=== PATIENT | female | born 1970 | race Caucasian/White ===

== ENCOUNTER 2017-09-28 19:16 | Emergency (ER) | payer OTHER ==
[~2017-09-28] VITALS: Ht 152.4 cm; Wt 95.3 kg
[2017-09-28] MEDS ORDERED: DULCOLAX STOOL100 MG PO (19:24)
[2017-09-28] MEDS ORDERED: ACETAMINOPHEN-1 EAC1 PO (19:25)
== END 2017-09-28 22:29 | disposition home or self-care (01) ==
LOC: ER 19:16
DX: S90.01XA Contusion of right ankle, initial encounter (principal); S90.31XA Contusion of right foot, initial encounter; V49.9XXA Car occupant (driver) (passenger) injured in unspecified traffic accident, initial encounter; Y93.89 Activity, other specified; Y92.488 Other paved roadways as the place of occurrence of the external cause; Y99.8 Other external cause status

== ENCOUNTER 2020-09-05 15:24 | Emergency (ER) | payer OTHER ==
[~2020-09-05] VITALS: Ht 152.4 cm; Wt 98.9 kg
[~2020-09-05 15:24] MED LIST: ACETAMINOPHEN-1 EAC1 PO; DULCOLAX STOOL100 MG PO
== END 2020-09-05 18:15 | disposition home or self-care (01) ==
LOC: ER 15:24
DX: S40.021A Contusion of right upper arm, initial encounter (principal); S50.01XA Contusion of right elbow, initial encounter; W22.8XXA Striking against or struck by other objects, initial encounter; Y93.89 Activity, other specified; Y92.89 Other specified places as the place of occurrence of the external cause; Y99.8 Other external cause status; M77.8 Other enthesopathies, not elsewhere classified

== ENCOUNTER 2020-10-02 20:07 | Emergency (ER) | payer OTHER ==
[~2020-10-02] VITALS: Ht 152.4 cm; Wt 98.9 kg
[2020-10-02] MEDS ORDERED: LISINOPRIL2.5 MG PO (20:17)
[2020-10-02] MEDS ORDERED: CODE1TAB37 PO (20:17)
[2020-10-02] MEDS ORDERED: MEDROLPACK PO (22:53)
[2020-10-02] MEDS ORDERED: PERCOCET 5-3251 EACH PO (22:58)
== END 2020-10-02 23:45 | disposition home or self-care (01) ==
LOC: ER 20:07
DX: M77.8 Other enthesopathies, not elsewhere classified (principal); M25.511 Pain in right shoulder

== ENCOUNTER 2021-01-06 08:00 | Outpatient (CLI) | payer OTHER ==
[~2021-01-06 08:00] MED LIST changes: +CODE1TAB37 PO; +LISINOPRIL2.5 MG PO; +MEDROLPACK PO; +PERCOCET 5-3251 EACH PO
== END 2021-01-06 08:30 | disposition home or self-care (01) ==
LOC: PPH VACUNA 08:00
DX: Z23 Encounter for immunization (principal)

== ENCOUNTER → 2021-02-13 | Outpatient (CLI) | payer OTHER | END | disposition home or self-care (01) | LOC: PPH VACUNA 15:45 | PROVIDERS: ATTEND Emergency Medicine Pediatric Emergency Medicine | DX: Z23 Encounter for immunization (principal) ==

== ENCOUNTER 2021-08-13 14:53 | Emergency (ER) | payer OTHER ==
[~2021-08-13] VITALS: Ht 165.1 cm; Wt 75.3 kg
== END 2021-08-13 21:17 | disposition home or self-care (01) ==
LOC: ER 14:53
DX: S60.012A Contusion of left thumb without damage to nail, initial encounter (principal); W18.30XA Fall on same level, unspecified, initial encounter; Y93.9 Activity, unspecified; Y92.012 Bathroom of single-family (private) house as the place of occurrence of the external cause

== ENCOUNTER 2021-11-25 21:37 | Emergency (ER) | payer OTHER ==
[~2021-11-25] VITALS: Ht 152.4 cm; Wt 98.0 kg
[2021-11-26] MEDS ORDERED: DULCOLAX5 MG (00:10)
[2021-11-26] MEDS ORDERED: PROTONIX20 MG (00:10)
== END 2021-11-26 05:57 ==
LOC: ER 21:37
DX: S93.402A Sprain of unspecified ligament of left ankle, initial encounter (principal); S83.92XA Sprain of unspecified site of left knee, initial encounter; X58.XXXA Exposure to other specified factors, initial encounter; Y93.89 Activity, other specified; Y92.9 Unspecified place or not applicable; Y99.9 Unspecified external cause status; Z88.6 Allergy status to analgesic agent; Z88.0 Allergy status to penicillin; Z88.8 Allergy status to other drugs, medicaments and biological substances

== ENCOUNTER 2022-09-05 16:17 | Emergency (ER) | payer OTHER ==
[~2022-09-05] VITALS: Ht 152.4 cm; Wt 98.9 kg
[~2022-09-05 16:17] MED LIST changes: +DULCOLAX5 MG; +PROTONIX20 MG
== END 2022-09-05 23:25 | disposition home or self-care (01) ==
LOC: ER 16:17
DX: R10.32 Left lower quadrant pain (principal); Z88.6 Allergy status to analgesic agent; Z88.0 Allergy status to penicillin; Z88.8 Allergy status to other drugs, medicaments and biological substances

== ENCOUNTER 2024-03-10 13:08 | Emergency (ER) | payer OTHER ==
[~2024-03-10] VITALS: Ht 152.4 cm; Wt 104.3 kg
[2024-03-10] MEDS ORDERED: 0.9 % SODIUM CHLORIDE 1,000 ML IV SCH (14:30)
[2024-03-10] MEDS ORDERED: DICYCLOMINE HCL 20 MG TABLET PO ONE (14:30)
[2024-03-10 15:43] LABS: HEMATOCRIT 36.3 % (36.0-45.00); HEMOGLOBIN 12.2 g/dL (12.0-15.00); MEAN CELL VOLUME 83.1 fL (80.00-100.00); MEAN CORPUSCULAR HEMOGLOBIN 27.9 pg (27.00-32.0); MEAN CORPUSCULAR HGB CONC 33.6 g/dl (32.0-36.0); PLATELET COUNT 374 K/uL (150-450); RED BLOOD COUNT 4.37 M/uL (4.00-6.00); RED CELL DISTRIBUTION WIDTH 14.5 % (11.5-14.5)
[2024-03-10 16:07] LABS: CALCIUM 9.8 mg/dL (8.5-10.1); CREATININE SERUM 0.74 mg/dL (0.55-1.02); GFR 82.09; PH,URINE 5.5 (5.0-8.0); POTASSIUM 3.86 mEq/L (3.5-5.1); URINE APPEARANCE Cloudy; URINE BILIRRUBIN Small (NEGATIVE); URINE BLOOD Negative; URINE COLOR Dark Yellow; URINE GLUCOSE Negative (NEGATIVE); URINE LEUKOCYTE Small; URINE NITRATE Negative; URINE PROTEIN Trace (NEGATIVE)
[2024-03-10 16:13] LABS: URINE CAST 2.59 uL (0.0-1.40); URINE EPITHELIAL CELLS 107.4 uL (0.0-38.8); URINE RBC 25.4 uL (0.0-20.8); URINE WBC 108.3 uL (0.0-23.2)
[2024-03-10 16:58] LABS: URINE BACTERIA > 9821.5 uL (0.0-1933); URINE KETONE 40 (NEGATIVE)
[2024-03-10] MEDS ORDERED: FAMOTIDINE/PF 20 MG in 0.9 % SODIUM CHLORIDE 8 ML IV PUSH STA (19:49)
[2024-03-10] MEDS ORDERED: METRONIDAZOLE500 MG PO (19:52)
[2024-03-10] MEDS ORDERED: LEVSIN/SL0.125 MG SL (19:52)
[2024-03-10] MEDS ORDERED: PROTONIX40 MG PO (19:52)
[2024-03-10] MEDS ORDERED: METRONIDAZOLE/SODIUM CHLORIDE 500 MG/100 ML PIGGYBACK IV ONE (20:00)
== END 2024-03-10 20:29 | disposition home or self-care (01) ==
LOC: ER 13:10
PROVIDERS: Emergency Medicine
DX: K57.32 Diverticulitis of large intestine without perforation or abscess without bleeding (principal); R10.32 Left lower quadrant pain; M19.90 Unspecified osteoarthritis, unspecified site; J45.909 Unspecified asthma, uncomplicated; Z88.0 Allergy status to penicillin; Z88.2 Allergy status to sulfonamides; Z91.040 Latex allergy status; Z85.42 Personal history of malignant neoplasm of other parts of uterus; K44.9 Diaphragmatic hernia without obstruction or gangrene; K59.00 Constipation, unspecified; Z90.710 Acquired absence of both cervix and uterus; Z88.6 Allergy status to analgesic agent
CPT/HCPCS: 36415; 74177; 96365; 96366; 99284; J3490; J7030; Q9965

== ENCOUNTER 2024-03-31 09:26 | Emergency (ER) | payer OTHER ==
[~2024-03-31] VITALS: Ht 152.4 cm; Wt 108.0 kg
[~2024-03-31 09:26] MED LIST changes: +LEVSIN/SL0.125 MG SL; +METRONIDAZOLE500 MG PO; +PROTONIX40 MG PO
[2024-03-31] MEDS ORDERED: BUDEO.25 IH (09:44)
[2024-03-31] MEDS ORDERED: PEPCID AC20 MG (09:44)
[2024-03-31] MEDS ORDERED: MEPERIDINE HCL/PF 50 MG/ML VIAL IM STA (10:25)
[2024-03-31] MEDS ORDERED: PROMETHAZINE HCL 25 MG/ML AMPUL IM STA (10:26)
[2024-03-31] MEDS ORDERED: 0.9 % SODIUM CHLORIDE 1,000 ML IV STA (10:26)
[2024-03-31 11:04] LABS: HEMATOCRIT 36.6 % (36.0-45.00); HEMOGLOBIN 12.3 g/dL (12.0-15.00); MEAN CELL VOLUME 82.6 fL (80.00-100.00); MEAN CORPUSCULAR HEMOGLOBIN 27.8 pg (27.00-32.0); MEAN CORPUSCULAR HGB CONC 33.7 g/dl (32.0-36.0); PLATELET COUNT 279 K/uL (150-450); RED BLOOD COUNT 4.43 M/uL (4.00-6.00); RED CELL DISTRIBUTION WIDTH 14.2 % (11.5-14.5)
[2024-03-31 11:17] LABS: URINE APPEARANCE Clear; URINE BILIRRUBIN Negative (NEGATIVE); URINE COLOR Yellow; URINE GLUCOSE Negative (NEGATIVE); URINE KETONE Negative (NEGATIVE); URINE LEUKOCYTE Negative; URINE NITRATE Negative; URINE PROTEIN Trace (NEGATIVE); URINE UROBILINOGEN 0.2 E.U./dl
[2024-03-31 11:20] LABS: URINE BACTERIA 251.9 uL (0.0-1933); URINE EPITHELIAL CELLS 22.8 uL (0.0-38.8); URINE RBC 100.6 uL (0.0-20.8); URINE WBC 4.6 uL (0.0-23.2)
[2024-03-31 11:31] LABS: ALBUMIN 3.7 gm/dL (3.4-5.0); BILIRUBIN TOTAL 0.55 mg/dL (0.3-1.2); BILIRUBIN,CONJUGATED 0.14 mg/dL (0.0-0.2); BILIRUBIN,UNCONJUGATED 0.41 mg/dL (0.0-0.6); CALCIUM 9.1 mg/dL (8.5-10.1); CREATININE SERUM 0.85 mg/dL (0.55-1.02); GFR 69.96; POTASSIUM 3.81 mEq/L (3.5-5.1); TOTAL PROTEIN 8.1 gm/dL (6.4-8.2)
[2024-03-31 11:44] LABS: URINE BLOOD TRACES
[2024-03-31] MEDS ORDERED: ORPHENADRINE CITRATE 30 MG/ML AMPUL IV STA (12:09)
[2024-03-31] MEDS ORDERED: ACETAMINOPHEN 500 MG GEL..CAP PO STA (12:11)
[2024-04-01] MEDS ORDERED: FLONASE16 GM NS (21:19)
== END 2024-03-31 14:10 | disposition home or self-care (01) ==
LOC: ER 09:28
PROVIDERS: General Practice
DX: M54.9 Dorsalgia, unspecified (principal); Z91.040 Latex allergy status; Z88.6 Allergy status to analgesic agent; Z88.0 Allergy status to penicillin

== ENCOUNTER 2024-04-01 21:02 | Emergency (ER) | payer OTHER ==
[~2024-04-01] VITALS: Ht 152.4 cm; Wt 108.0 kg
[~2024-04-01 21:02] MED LIST changes: +BUDEO.25 IH; +PEPCID AC20 MG
[2024-04-01] MEDS ORDERED: FLONASE16 GM NS (21:19)
[2024-04-02] MEDS ORDERED: HALOPERIDOL LACTATE 5 MG/ML AMPUL IM STA (01:31)
[2024-04-02] MEDS ORDERED: DIPHENHYDRAMINE HCL 50 MG/ML VIAL 1ML IM STA (01:32)
[2024-04-02] MEDS ORDERED: DEXAMETHASONE SODIUM PHOSPHATE 4 MG/ML VIAL IM STA (01:32)
[2024-04-02 02:21] LABS: HEMATOCRIT 34.6 % (36.0-45.00); HEMOGLOBIN 11.6 g/dL (12.0-15.00); MEAN CELL VOLUME 81.4 fL (80.00-100.00); MEAN CORPUSCULAR HEMOGLOBIN 27.4 pg (27.00-32.0); MEAN CORPUSCULAR HGB CONC 33.7 g/dl (32.0-36.0); PLATELET COUNT 251 K/uL (150-450); RED BLOOD COUNT 4.25 M/uL (4.00-6.00); RED CELL DISTRIBUTION WIDTH 14.2 % (11.5-14.5)
== END 2024-04-02 03:37 | disposition home or self-care (01) ==
LOC: ER 21:04
DX: B34.9 Viral infection, unspecified (principal); J10.1 Influenza due to other identified influenza virus with other respiratory manifestations; R53.81 Other malaise; Z20.822 Contact with and (suspected) exposure to COVID-19; Z88.0 Allergy status to penicillin; Z88.6 Allergy status to analgesic agent; Z88.8 Allergy status to other drugs, medicaments and biological substances

== ENCOUNTER 2024-04-17 00:19 | Emergency (ER) | payer OTHER ==
[~2024-04-17] VITALS: Ht 152.4 cm; Wt 108.0 kg
[~2024-04-17 00:19] MED LIST changes: +FLONASE16 GM NS
[2024-04-17] MEDS ORDERED: TRAMADOL HCL 50 MG TABLET PO STA ×2 (03:43→04:49)
[2024-04-17] MEDS ORDERED: TRAMADOL HCL50 MG PO (04:47)
== END 2024-04-17 05:02 ==
LOC: ER 00:21
DX: S46.812A Strain of other muscles, fascia and tendons at shoulder and upper arm level, left arm, initial encounter (principal); X58.XXXA Exposure to other specified factors, initial encounter; Y93.89 Activity, other specified; Y92.89 Other specified places as the place of occurrence of the external cause; Y99.8 Other external cause status; Z88.0 Allergy status to penicillin; Z88.6 Allergy status to analgesic agent; Z88.8 Allergy status to other drugs, medicaments and biological substances

== ENCOUNTER 2025-01-12 13:20 | Emergency (ER) | payer OTHER ==
[~2025-01-12] VITALS: Ht 152.4 cm; Wt 110.2 kg
[~2025-01-12 13:20] MED LIST changes: +TRAMADOL HCL50 MG PO
[2025-01-12] MEDS ORDERED: FAMOTIDINE20 MG PO (14:19)
[2025-01-12] MEDS ORDERED: PROTONIX40 MG PO (14:19)
[2025-01-12] MEDS ORDERED: 0.9 % SODIUM CHLORIDE 1,000 ML IV STA (14:58)
[2025-01-12] MEDS ORDERED: ONDANSETRON HCL 2 MG/ML VIAL IV STA (15:42)
[2025-01-12] MEDS ORDERED: MORPHINE SULFATE 4 MG/ML VIAL IV ONE (15:45)
[2025-01-12 15:49] LABS: BASO % 0.4 % (0.1-1.2); EOS # 0.04 (0.04-0.54); EOS % 0.5 % (0.7-7.0); LYMPH # 1.77 (1.18-3.74); LYMPH % 23.7 % (19.3-53.1); MEAN PLATELET VOLUME 9.40 fl (9.4-12.4); MONO # 0.37 (0.24-0.82); MONO % 5.0 % (4.7-12.5); NEUT # 5.23 (1.56-6.13); NEUT % 70.1 % (34.0-71.1); RED CELL DISTRIBUTION WIDTH 14.5 % (11.6-14.4)
[2025-01-12 16:10] LABS: BUN CREA RATIO 15.0 (7.0-25.0); CREATININE SERUM 0.66 mg/dL (0.55-1.02); GFR 93.68; GLUCOSE FASTING 97.0 mg/dL (65-100); OSMOLALITY SERUM 284.0 MOSM/KG (275-295)
[2025-01-12 16:47] LABS: URINE APPEARANCE Clear; URINE BILIRRUBIN Negative (NEGATIVE); URINE BLOOD Negative; URINE COLOR Yellow; URINE GLUCOSE Negative (NEGATIVE); URINE KETONE 15 (NEGATIVE); URINE LEUKOCYTE Trace; URINE NITRATE Negative; URINE PROTEIN Negative (NEGATIVE); URINE UROBILINOGEN 1.0 E.U./dl
[2025-01-12 16:53] LABS: URINE BACTERIA 1141.1 uL (0.0-1933); URINE EPITHELIAL CELLS 45.3 uL (0.0-38.8); URINE RBC 19.2 uL (0.0-20.8); URINE WBC 26.7 uL (0.0-23.2)
[2025-01-12 16:54] LABS: URINE CAST 0.43 uL (0.0-1.40)
[2025-01-12] MEDS ORDERED: FAMOTIDINE/PF 20 MG in 0.9 % SODIUM CHLORIDE 8 ML IV PUSH STA (20:27)
[2025-01-12] MEDS ORDERED: METRONIDAZOLE500 MG PO (20:30)
[2025-01-12] MEDS ORDERED: METHYLPREDNISOLONE SOD SUCC 125 MG VIAL IV ONE (20:30)
[2025-01-12] MEDS ORDERED: CIPRO500 MG PO (20:30)
[2025-01-12] MEDS ORDERED: INTESTINEX680 M1 PO (20:30)
[2025-01-12] MEDS ORDERED: METHYLPREDNISOLONE SOD SUCC 125 MG VIAL ONE (20:35)
[2025-01-12] MEDS ORDERED: FAMOTIDINE/PF 20 MG/2 ML VIAL ONE (20:35)
== END 2025-01-12 20:45 | disposition home or self-care (01) ==
LOC: ER 13:20
PROVIDERS: Emergency Medicine
DX: K52.9 Noninfective gastroenteritis and colitis, unspecified (principal); K62.5 Hemorrhage of anus and rectum; R10.9 Unspecified abdominal pain; R11.10 Vomiting, unspecified; Z88.6 Allergy status to analgesic agent; Z88.0 Allergy status to penicillin; Z88.8 Allergy status to other drugs, medicaments and biological substances
CPT/HCPCS: 36415; 74177; Q9965

== ENCOUNTER 2025-03-23 20:29 | Emergency (ER) | payer OTHER ==
[~2025-03-23] VITALS: Ht 152.4 cm; Wt 109.8 kg
[~2025-03-23 20:29] MED LIST changes: +CIPRO500 MG PO; +FAMOTIDINE20 MG PO; +INTESTINEX680 M1 PO
[2025-03-23] MEDS ORDERED: DEXAMETHASONE SODIUM PHOSPHATE 4 MG/ML VIAL IM STA (22:50)
[2025-03-23] MEDS ORDERED: DEXAMETHASONE SODIUM PHOSPHATE 4 MG/ML VIAL ONE (22:56)
== END 2025-03-23 23:06 | disposition home or self-care (01) ==
LOC: ER 20:29
DX: S90.02XA Contusion of left ankle, initial encounter (principal); S80.02XA Contusion of left knee, initial encounter; S60.212A Contusion of left wrist, initial encounter; W18.39XA Other fall on same level, initial encounter; Y93.89 Activity, other specified; Y92.89 Other specified places as the place of occurrence of the external cause; Y99.9 Unspecified external cause status; Z88.6 Allergy status to analgesic agent; Z88.0 Allergy status to penicillin; Z88.8 Allergy status to other drugs, medicaments and biological substances

== ENCOUNTER 2025-03-28 18:25 | Emergency (ER) | payer OTHER ==
[~2025-03-28] VITALS: Ht 152.4 cm; Wt 110.7 kg
[2025-03-28 18:58] VITALS: BP 148/90; O2SAT 100
[2025-03-28] MEDS ORDERED: DEXAMETHASONE SODIUM PHOSP/PF 10 MG/ML VIAL IV ONE (19:45)
[2025-03-28] MEDS ORDERED: ACETAMINOPHEN 325 MG TABLET PO ONE (19:45)
[2025-03-28] MEDS ORDERED: BENZONATATE 100 MG CAPSULE PO ONE (19:45)
[2025-03-28] MEDS ORDERED: ACETAMINOPHEN 500 MG GEL..CAP PO ONE (21:47)
[2025-03-28] MEDS ORDERED: DEXAMETHASONE SODIUM PHOSPHATE 4 MG/ML VIAL ONE (21:47)
[2025-03-28 23:16] LABS: URINE APPEARANCE Clear; URINE BILIRRUBIN Negative (NEGATIVE); URINE BLOOD NHT; URINE COLOR Yellow; URINE GLUCOSE Negative (NEGATIVE); URINE KETONE Negative (NEGATIVE); URINE LEUKOCYTE Trace; URINE NITRATE Negative; URINE PROTEIN Negative (NEGATIVE); URINE UROBILINOGEN 0.2 E.U./dl
[2025-03-28 23:16] LABS: BASO % 0.5 % (0.1-1.2); EOS # 0.07 (0.04-0.54); EOS % 0.8 % (0.7-7.0); LYMPH # 2.69 (1.18-3.74); LYMPH % 32.6 % (19.3-53.1); MEAN PLATELET VOLUME 9.70 fl (9.4-12.4); MONO # 0.50 (0.24-0.82); MONO % 6.1 % (4.7-12.5); NEUT # 4.93 (1.56-6.13); NEUT % 59.9 % (34.0-71.1); RED CELL DISTRIBUTION WIDTH 14.9 % (11.6-14.4)
[2025-03-28 23:21] LABS: URINE BACTERIA 278.3 uL (0.0-1933); URINE EPITHELIAL CELLS 42.7 uL (0.0-38.8); URINE RBC 38.8 uL (0.0-20.8); URINE WBC 32.1 uL (0.0-23.2)
[2025-03-28 23:27] LABS: URINE CAST 0.14 uL (0.0-1.40)
[2025-03-28 23:38] LABS: BUN CREA RATIO 15.0 (7.0-25.0); CREATININE SERUM 0.79 mg/dL (0.55-1.02); GFR 75.84; GLUCOSE FASTING 101.0 mg/dL (65-100); OSMOLALITY SERUM 279.0 MOSM/KG (275-295)
[2025-03-29] MEDS ORDERED: DOLOGESIC-DF 51 EACH PO (00:25)
[2025-03-29] MEDS ORDERED: BACLOFEN10 MG PO (00:25)
== END 2025-03-29 00:39 | disposition home or self-care (01) ==
LOC: ER 18:25
PROVIDERS: General Practice
DX: M62.838 Other muscle spasm (principal); Z88.6 Allergy status to analgesic agent; Z88.0 Allergy status to penicillin; Z88.1 Allergy status to other antibiotic agents; Z91.040 Latex allergy status; M25.562 Pain in left knee